=== PATIENT | male | born 1975 | race Hispanic/Latino ===

== ENCOUNTER 2022-10-23 17:03 | Emergency (ER) | payer BC ==
--- NOTE | 2022-10-23 18:08 | EDPHYS ---
Physician Documentation [facility] Name: Kwaku Jones Age: 47 yrs Sex: Male : 1975 Arrival Date: 10/23/2022 Time: 17:13 Bed IW1 Private MD: ED Physician Carlos Conley HPI: 10/23 17:25 This 47 yrs old Male presents to ER via Other with complaints of Sore Throat, bs3 Fever. 17:25 The patient presents with sore throat. 47-year-old male with no significant past bs3 medical history presents with sore throat for the last 2 days he had a fever but he thinks he broke yesterday he also notes that he had some ear drainage prior to this for couple days but that resolved no difficulty breathing or swallowing he has not taken anything for the pain it is worse with swallowing better with rest. Historical: - Allergies: 17:46 No Known Allergies; ss - Home Meds: 17:46 None [Active]; ss - PMHx: 17:46 None; ss - PSHx: 17:46 None; ss - Immunization history:: Client reports having NOT received the Covid vaccine. - Social history:: Smoking status: Patient denies any tobacco usage or history of. ROS: 17:25 Constitutional: Positive for fever bs3 17:25 All other systems are negative. Exam: 17:25 Constitutional: This is a well developed, well nourished patient who is awake, alert, bs3 and in no acute distress. Head/Face: Normocephalic, atraumatic. Eyes: Pupils equal round and reactive to light, extra-ocular motions intact. Lids and lashes normal. ENT: mmm, no posterior tiny exudate on the right tonsil no significant enlargement no trismus no uvular deviation Neck: Trachea midline, no thyromegaly, no neck stiffness Chest/axilla: Normal chest wall appearance and motion. Nontender with no deformity. No lesions are appreciated. Cardiovascular: Regular rate and rhythm with a normal S1 and S2. symmetric pulses in upper extremities Respiratory: Lungs have equal breath sounds bilaterally, clear to auscultation, no respiratory distress Vital Signs: 17:46 BP 129 / 90; Pulse 90; Resp 16; Temp 98.9(TE); Pulse Ox 100% on R/A; Weight 96.16 kg; ss Height 5 ft. 8 in. (172.72 cm); Pain 9/10; 17:46 Body Mass Index 32.23 (96.16 kg, 172.72 cm) ss MDM: 17:17 Patient medically screened. bs3 17:25 Differential diagnosis: Possible viral illness possible strep throat I considered RPA, bs3 [employer], [place] but his history and physical are not suggestive of these. Data reviewed: vital signs, nurses notes. ED course: Will rule out strep throat patient does not want pain medicine anticipate discharge home. ED course: I considered antibiotics and will give antibiotics if strep positive if not no antibiotics needed. 10/23 17:25 Order name: Strep bs3 10/23 18:03 Order name: Group A Streptococcus Rapid Sc; Complete Time: 18:06 EDMS Administered Medications: No medications were administered Disposition Summary: 10/23/22 18:07 Discharge Ordered Location: Home bs3 Problem: new bs3 Symptoms: are unchanged bs3 Condition: Stable bs3 Diagnosis - Pain in throat bs3 Followup: bs3 - With: Private Physician - When: 48 Hours - Reason: Re-evaluation by your physician Discharge Instructions: - Discharge Summary Sheet bs3 - Sore Throat, [id number] bs3 Forms: - Medication Reconciliation Form bs3 - Thank You Letter bs3 - Antibiotic Education bs3 - Work release form bs3 - Prescription Opioid Use bs3 Signatures: Dispatcher [employer] EDMS Kaitlyn Sorenson RN RN ss Stein, Brandon, MD MD bs3
--- NOTE | 2022-10-23 18:08 | ER ---
Nurse's Notes [facility] Name: Kwaku Jones Age: 47 yrs Sex: Male : 1975 Arrival Date: 10/23/2022 Time: 17:13 Bed IW1 Private MD: Diagnosis: Pain in throat Presentation: 10/23 17:45 Chief complaint: Patient states: sore throat x 2-3 days and fever that began last ss night. Coronavirus screen: Client denies travel out of the [place] in the last 14 days. Ebola Screen: Patient denies exposure to infectious person. Patient denies travel to an Ebola-affected area in the 21 days before illness onset. Initial Sepsis Screen: Does the patient meet any 2 criteria? No. Patient's initial sepsis screen is negative. Does the patient have a suspected source of infection? No. Patient's initial sepsis screen is negative. Risk Assessment: Do you want to hurt yourself or someone else? Patient reports no desire to harm self or others. Onset of symptoms was October 20, 2022. 17:45 Method Of Arrival: Ambulatory ss 17:45 Acuity: GRADY 4 ss Historical: - Allergies: 17:46 No Known Allergies; ss - Home Meds: 17:46 None [Active]; ss - PMHx: 17:46 None; ss - PSHx: 17:46 None; ss - Immunization history:: Client reports having NOT received the Covid vaccine. - Social history:: Smoking status: Patient denies any tobacco usage or history of. Screenin:21 [facility] ED Fall Risk Assessment (Adult) History of falling in the last 3 months, ss including since admission No falls in past 3 months (0 pts). Abuse screen: Denies threats or abuse. Denies injuries from another. Nutritional screening: No deficits noted. Tuberculosis screening: Never had TB. Assessment: 18:21 General: Appears in no apparent distress. comfortable, Behavior is calm, cooperative. ss Neuro: Level of Consciousness is awake, alert, obeys commands, Oriented to person, place, time, situation. Respiratory: Airway is patent Respiratory effort is even, unlabored, Respiratory pattern is regular, symmetrical. Derm: Skin is intact, is healthy with good turgor, Skin is dry, Skin is pink, warm \T\ dry. normal. Musculoskeletal: Circulation, motion, and sensation intact. Range of motion: intact in all extremities, Swelling absent. Vital Signs: 17:46 BP 129 / 90; Pulse 90; Resp 16; Temp 98.9(TE); Pulse Ox 100% on R/A; Weight 96.16 kg; ss Height 5 ft. 8 in. (172.72 cm); Pain 9/10; 17:46 Body Mass Index 32.23 (96.16 kg, 172.72 cm) ED Course: 17:13 Patient arrived in ED. rg4 17:17 Carlos Conley MD is Attending Physician. bs3 17:46 Triage completed. ss 17:46 Arm band placed on right wrist. ss 18:21 Kaitlyn Sorenson RN is Primary Nurse. ss 18:21 Patient has correct armband on for positive identification. Bed in low position. ss 18:21 No provider procedures requiring assistance completed. Patient did not have IV access ss during this emergency room visit. Administered Medications: No medications were administered Medication: 18:21 VIS not applicable for this client. ss Outcome: 18:07 Discharge ordered by . bs3 18:22 Discharged to home ambulatory. ss 18:22 Condition: good 18:22 Discharge instructions given to patient, Instructed on discharge instructions, follow up and referral plans. Demonstrated understanding of instructions, follow-up care. 18:23 Patient left the ED. ss Signatures: Kaitlyn Sorenson RN RN Fiona Nickerson rg4 Carlos Conley MD MD bs3
[2022-10-23 18:50] VITALS: BP 129/90; TEMP 98.9; O2SAT 100
== END 2022-10-23 18:23 | disposition home or self-care (01) ==
LOC: ER 17:03
DX: R07.0 Pain in throat (principal); R50.9 Fever, unspecified
CPT/HCPCS: 87070; 87081